=== PATIENT | female | born 1985 | race Caucasian/White ===

== ENCOUNTER 2023-09-02 21:46 | Observation (INO) | payer MEDICARE ==
[~2023-09-02] VITALS: Ht 162.6 cm; Wt 85.5 kg
[2023-09-02 21:50] VITALS: TEMP 98.9
[2023-09-02 22:28] LABS: BASOPHILS % 0.7 % (0.0-1.0); EOSINOPHILS # (AUTO) 0.1 (0.0-0.4); EOSINOPHILS % 6.8 % (0.0-6.0); LYMPHOCYTES # (AUTO) 0.3 (1.0-3.2); LYMPHOCYTES % 20.4 % (18.0-39.1); MEAN CORPUSCULAR HEMOGLOBIN 19.4 pg (28-32); MEAN CORPUSCULAR HGB CONC 26.1 g/dL (31-35); MEAN CORPUSCULAR VOLUME 74.5 fL (81-99); MONOCYTES # (AUTO) 0.3 (0.2-0.8); NEUTROPHILS # (AUTO) 0.8 (2.1-6.9); NEUTROPHILS % 55.1 % (38.7-80.0); PLATELET COUNT 174 x10e3/uL (140-360); RED BLOOD COUNT 2.16 x10e6/uL (3.6-5.1); RED CELL DISTRIBUTION WIDTH 17.4 % (11.7-14.4)
[2023-09-02 22:30] LABS: WHITE BLOOD COUNT 1.47 x10e3/uL (4.8-10.8)
[2023-09-02 22:31] LABS: HEMATOCRIT 16.1 % (34.2-44.1); HEMOGLOBIN 4.2 g/dL (12.0-16.0)
[2023-09-02 22:35] VITALS: PULSE 90; RESP 16
[2023-09-02 22:43] LABS: ALBUMIN 3.7 g/dL (3.5-5.0); ALBUMIN/GLOBULIN RATIO 1.2 (0.8-2.0); ANION GAP 25.3 mmol/L (8-16); BILIRUBIN,TOTAL 0.3 mg/dL (0.2-1.2); CALCIUM 8.6 mg/dL (8.4-10.2); CREATININE, SERUM 0.83 mg/dL (0.57-1.11); TOTAL PROTEIN 6.8 g/dL (6.5-8.1)
[2023-09-02 22:44] LABS: POTASSIUM 3.3 mmol/L (3.5-5.1)
[2023-09-02] MEDS ORDERED: Morphine 4mg INJECTION 4 MG/ML INJ IV PRN (22:45)
[2023-09-02] MEDS ORDERED: ONDANSETRON HCL INJ 2MG/ML 2ML 2 MG/ML VIAL IV PRN (22:45)
[2023-09-02 23:03] LABS: ABG HCO3 22 mmol/L (22-26); ABG PCO2 28 mmHg (35-45); ABG PO2 127 mmHg (80-105); ABG TCO2 23
[2023-09-02] MEDS: ACETAMINOPHEN 325 MG TAB PO STA (23:34)
[2023-09-03] VITALS (33 sets, daily range): BP systolic 122–161; BP diastolic 78–104; PULSE 64–98; RESP 14–28; TEMP 97.8–99.2; O2SAT 98–100
[2023-09-03] MEDS: DIPHENHYDRAMINE HCL 25 MG CAP PO PRN (00:35)
[2023-09-03] MEDS: SODIUM CHLORIDE 0.9% 250ML 250 ML IV ONE ×3 (00:35→13:10)
[2023-09-03] MEDS: ACETAMINOPHEN 325 MG TAB PO PRN (00:36)
[2023-09-03] MEDS ORDERED: NEURONTIN400 MG PO (00:53)
[2023-09-03] MEDS ORDERED: AMLODIPINE BESYL5 MG PO (00:53)
[2023-09-03] MEDS: GABAPENTIN 300 MG CAP PO SCH (08:10)
[2023-09-03] MEDS: AMLODIPINE BESYLATE 5 MG TAB PO SCH (08:11)
[2023-09-03 08:41] LABS: BASOPHILS % 0.4 % (0.0-1.0); EOSINOPHILS # (AUTO) 0.2 (0.0-0.4); LYMPHOCYTES # (AUTO) 0.3 (1.0-3.2); LYMPHOCYTES % 10.3 % (18.0-39.1); MEAN CORPUSCULAR HEMOGLOBIN 21.5 pg (28-32); MEAN CORPUSCULAR HGB CONC 28.4 g/dL (31-35); MEAN CORPUSCULAR VOLUME 75.8 fL (81-99); MONOCYTES # (AUTO) 0.3 (0.2-0.8); MONOCYTES % 10.3 % (4.4-11.3); NEUTROPHILS # (AUTO) 1.7 (2.1-6.9); NEUTROPHILS % 71.6 % (38.7-80.0); PLATELET COUNT 151 x10e3/uL (140-360); RED CELL DISTRIBUTION WIDTH 17.2 % (11.7-14.4); WHITE BLOOD COUNT 2.42 x10e3/uL (4.8-10.8)
[2023-09-03 08:46] LABS: HEMATOCRIT 19.7 % (34.2-44.1); HEMOGLOBIN 5.6 g/dL (12.0-16.0)
[2023-09-03 09:07] LABS: ALBUMIN 3.5 g/dL (3.5-5.0); ALBUMIN/GLOBULIN RATIO 1.3 (0.8-2.0); ANION GAP 15.5 mmol/L (8-16); BILIRUBIN,TOTAL 1.5 mg/dL (0.2-1.2); CALCIUM 8.8 mg/dL (8.4-10.2); CREATINE KINASE 62 IU/L (29-168); CREATININE, SERUM 0.79 mg/dL (0.57-1.11); POTASSIUM 3.5 mmol/L (3.5-5.1); TOTAL PROTEIN 6.3 g/dL (6.5-8.1)
[2023-09-03 09:09] LABS: TROPONIN I < 0.001 ng/mL (0-0.300)
[2023-09-03 12:06] LABS: FERRITIN 101.58 ng/mL (4.63-204.00)
[2023-09-03 20:17] LABS: HEMATOCRIT 23.2 % (34.2-44.1)
[2023-09-03 20:20] LABS: HEMOGLOBIN 6.7 g/dL (12.0-16.0)
[2023-09-04 07:03] LABS: HEMATOCRIT 25.3 % (34.2-44.1); HEMOGLOBIN 7.3 g/dL (12.0-16.0)
[2023-09-04 07:45] VITALS: BP 133/93; PULSE 61; RESP 14; TEMP 97.7; O2SAT 97
[2023-09-04 08:12] VITALS: BP 133/93; PULSE 61; RESP 14; TEMP 97.7; O2SAT 97
== END 2023-09-04 13:42 | disposition home or self-care (01) ==
LOC: ER 21:59 → EDBD 21:59 → ERHOLD 22:37 → ICU 23:53
PROVIDERS: ADMIT Internal Medicine; ATTEND Internal Medicine
DX: D50.0 Iron deficiency anemia secondary to blood loss (chronic) (principal); N92.0 Excessive and frequent menstruation with regular cycle; I10 Essential (primary) hypertension; M79.2 Neuralgia and neuritis, unspecified; Z11.52 Encounter for screening for COVID-19; Z79.899 Other long term (current) drug therapy
CPT/HCPCS: 36415 ×3; 36430; 36600; 80053 ×2; 82550; 82728; 82805; 83540; 84466; 84484; 85014 ×2; 85018 ×2; 85025 ×2; 86850; 86900; 86920; 93005; 99252; 99284; G0378 ×3; J2543 ×2; J7050; P9016; U0002